=== PATIENT | male | born 1945 | race Caucasian/White ===

== ENCOUNTER → 2017-07-11 | Outpatient (CLI) | payer OTHER ==
[~2017-07-11] MED LIST: ACETAMINOPHEN PO; ACETAMINOPHEN500 M3 PO; ADVAIR 100-501 EACH INH; BACLOFEN10 MG PO; BYSTOLIC10 MG PO; CLOPIDOGREL BIS75 MG PO; CO Q-1050 MG PO; COLCHICINE0.6 M1; ELIQUIS5 MG PO; FISH OIL 1,2001 EAC4 PO; FUROSEMIDE40 MG PO; LIPITOR40 MG PO; LORTAB 7.5-3251 EACH PO; METOPROLOL TART75 MG PO; MONTELUKAST SOD10 MG PO; MULTI VITAMIN1 EACH PO; POTASSIUM99 M1 PO; PRAVASTATIN SOD20 MG PO; PREDNISONE5 M1 PO; ZESTRIL10 M1 PO; ZYLOPRIM100 MG PO
--- NOTE | ~2017-07-11 | US37 ---
[facility] A Service of [facility] & [facility] RADIOLOGY TEXT RESULTS PATIENT: JOHANNY HATCH LOCATION: CNIV : 45 UNIT #: [id number] AGE: [address]: Eliel Cisneros MD SEX: M ORDER DR: [id number] [facility] [address] [place], [place] [address] [id number] O MR#: [id number] Acc #: [id number] NAME: JOHANNY HATCH : 1945 SEX: M STUDY DATE/TIME: 07/11/2017 13:25 UNIT: [facility] ROOM: STUDY DESCRIPTION: US Carotid W/Doppler Bilateral Attending Physician: Eliel Cisneros M.D. Referring Physician: Eliel Cisneros M.D. Ordering Physician: Eliel Cisneros M.D. Primary Care Physician: Chanell Bailon M.D. MEDICAL IMAGING REPORT This report is preliminary unless electronic signature is present EXAM Bilateral carotid duplex HISTORY Carotid stenosis, bilateral FINDINGS There is flow in the right common carotid artery, but the right internal carotid artery appears occluded. There is heavy calcification throughout the right carotid bifurcation and external carotid artery, which appears irregular, heterogeneous and echogenic. The right common carotid artery peak velocity is 39 cm/second. The right external carotid artery peak velocity is 201 cm/second, and vertebral artery with a velocity of 51 cm/second. This previous right internal carotid artery occlusion was noted in 07/2015. There is patent flow seen throughout the left common carotid, internal carotid and external carotid arteries. The left common carotid artery has diffuse atherosclerosis, which appears heterogeneous and echogenic. The left carotid bifurcation has some heterogeneous and echogenic plaque, extending into the internal and external carotid arteries. The left common carotid artery peak velocity is 55 cm/second. The left internal carotid artery peak systolic/end diastolic velocities are: Proximal 98/35 cm/second; mid 307/97 cm/second; distal 97/28 cm/second. The left external carotid artery peak velocity is 110 cm/second and vertebral artery 57 cm/second. The left ICA:CCA ratio is 5.5. IMPRESSION 1. This is an abnormal study. The right internal carotid artery is occluded, as previously seen on 07/2015. 2. The right external carotid artery likely has a moderate to high-grade stenosis. [facility] A Service of [facility] RADIOLOGY TEXT RESULTS PATIENT: JOHANNY HATCH LOCATION: [facility] : 45 UNIT #: [id number] AGE: [address]: Eliel Cisneros MD SEX: M ORDER DR: 3. The left carotid artery has high-grade stenosis, greater than 70% by duplex criteria. This finding is similar to the one seen in 07/2015. 4. Vertebral flow is antegrade bilaterally. Dictated by... Kd Romeo M.D. THIS IS AN ELECTRONICALLY VERIFIED REPORT Kd Romeo M.D. at 07/16/2017 4:09 PM AC/to TD: 07/11/2017 20:31 JOB #: [id number] MEDICAL IMAGING REPORT Page 1 of 1 COPY
== END | disposition home or self-care (01) ==
LOC: CNIV 13:03
DX: I65.23 Occlusion and stenosis of bilateral carotid arteries (principal); R94.8 Abnormal results of function studies of other organs and systems
CPT/HCPCS: 93880

== ENCOUNTER → 2017-07-16 | Day surgery (SDC) | payer OTHER ==
--- NOTE | ~2017-07-16 | OR ---
Unit #: [id number] #: [id number] Patient: JOHANNY HATCH [id number] [address] [address] [id number] O MR#: [id number] NAME: JOHANNY HATCH ROOM: Date of Procedure: 07/16/2017 Admission Date: 07/16/2017 Surgeon: Pedro Alanis M.D. : 1945 Attending Physician: Pedro Alanis M.D. Primary Care Physician: Chanell Bailon M.D. OPERATIVE REPORT PREOPERATIVE DIAGNOSES Back pain, radiculopathy, degenerative disk disease, spinal stenosis. POSTOPERATIVE DIAGNOSES Back pain, radiculopathy, degenerative disk disease, spinal stenosis. PROCEDURE PERFORMED Lumbar epidural steroid injection with fluoroscopic guidance for needle localization. INDICATIONS FOR PROCEDURE The patient is a 71-year-old male with a long history of back pain and over the last several months, he had significantly worsening bilateral lower extremity right greater than left. The pain especially with standing or walking. It did not settle with conservative treatments, so plan is for trial of epidural steroids. Risks and benefits of all have been reviewed. DESCRIPTION OF PROCEDURE The patient was placed in the seated position. Standard monitors were applied. Sterile prep and drape of the lumbar area were performed. The skin then at the L4-L5 level was localized with 1% lidocaine. An 18-gauge [employer] needle was then advanced via loss of resistance technique and fluoroscopic guidance in toward the epidural space. After confirming proper positioning with fluoroscopy and radiographic contrast, 80 mg of Depo-Medrol and 3 mL of 0.9% normal saline were deposited. The patient tolerated the procedure otherwise well and was discharged to the recovery room in stable condition. Dictated by... Pedro Alanis M.D. LHP/modl TD: 07/16/2017 16:57 JOB #: [id number] Unit #: [id number] #: [id number] Patient: JOHANNY HATCH OPERATIVE REPORT Page 1 of 1 X Pedro Alanis MD X PROCEDURE OPERATIVE NOTE
== END | disposition home or self-care (01) ==
LOC: CCSC 08:23
DX: M51.16 Intervertebral disc disorders with radiculopathy, lumbar region (principal); M48.06 Spinal stenosis, lumbar region; J44.9 Chronic obstructive pulmonary disease, unspecified; Z95.1 Presence of aortocoronary bypass graft; Z88.8 Allergy status to other drugs, medicaments and biological substances; Z91.041 Radiographic dye allergy status; Z79.51 Long term (current) use of inhaled steroids; Z79.01 Long term (current) use of anticoagulants; Z79.899 Other long term (current) drug therapy
CPT/HCPCS: J1040; J2250

== ENCOUNTER → 2017-07-30 | Day surgery (SDC) | payer OTHER ==
--- NOTE | ~2017-07-30 | OR ---
Unit #: [id number] #: [id number] Patient: JOHANNY HATCH [id number] [address] [address] [id number] O MR#: [id number] NAME: JOHANNY HATCH ROOM: Date of Procedure: 07/30/2017 Admission Date: 07/30/2017 Surgeon: Pedro Alanis M.D. : 1945 Attending Physician: Pedro Alanis M.D. Primary Care Physician: Chanell Bailon M.D. OPERATIVE REPORT JOB NOTE: CC: [facility] PREOPERATIVE DIAGNOSES Back pain, radiculopathy, degenerative disk disease, spinal stenosis, spondylolisthesis. POSTOPERATIVE DIAGNOSES Back pain, radiculopathy, degenerative disk disease, spinal stenosis, spondylolisthesis. PROCEDURE PERFORMED Lumbar epidural steroid injection with fluoroscopic guidance for needle localization. INDICATIONS FOR PROCEDURE The patient is a 71-year-old male, who had right lower extremity pain greater than the left and low back pain due to degenerative disk disease, most significant at the L4-L5 and L5-S1 levels. Fluoroscopy actually shows anterolisthesis as well at the L4-L5 level. The patient had initial epidural steroid injection, which resulted in significant improvement of his symptom complex. Greater than 50% of his pain was controlled and he was doing much more significant daily physical activities. Based on good partial response, we are going to proceed with a second injection at this point and was see him back in the office in several weeks' time. DESCRIPTION OF PROCEDURE The patient was placed in a seated position. Standard monitors were applied. Sterile prep and drape of the lumbar area were performed. The skin at the L4-L5 level was localized with 1% lidocaine. An 18-gauge [employer] needle was then advanced via loss of resistance technique and fluoroscopic guidance in toward the epidural space. After confirming proper positioning with fluoroscopy and radiographic contrast, 80 mg of Depo-Medrol and 3 mL of preservative-free normal saline were deposited. The patient tolerated the procedure otherwise well and was discharged to the recovery room in stable condition. Dictated by... Pedro Alanis M.D. LHP/modl Unit #: [id number] #: [id number] Patient: JOHANNY HATCH TD: 07/30/2017 10:59 JOB #: [id number] OPERATIVE REPORT Page 1 of 1 X Pedro Alanis MD X PROCEDURE OPERATIVE NOTE
== END | disposition home or self-care (01) ==
LOC: CCSC 08:32
DX: M51.17 Intervertebral disc disorders with radiculopathy, lumbosacral region (principal); M51.16 Intervertebral disc disorders with radiculopathy, lumbar region; M43.16 Spondylolisthesis, lumbar region; M48.06 Spinal stenosis, lumbar region; J44.9 Chronic obstructive pulmonary disease, unspecified; M10.9 Gout, unspecified; Z88.8 Allergy status to other drugs, medicaments and biological substances; Z91.041 Radiographic dye allergy status; Z79.01 Long term (current) use of anticoagulants; Z79.51 Long term (current) use of inhaled steroids; Z79.899 Other long term (current) drug therapy; Z95.1 Presence of aortocoronary bypass graft
CPT/HCPCS: J1040; J2250